=== PATIENT | male | born 1960 | race African-American/Black ===

== ENCOUNTER 2018-06-01 08:39 | Emergency (ER) | payer MEDICAID ==
[~2018-06-01] VITALS: Ht 180.3 cm; Wt 90.9 kg
[2018-06-01 08:45] VITALS: Ht 180.3 cm; Wt 90.9 kg
[2018-06-01] MEDS ORDERED: CYCLOBENZAPRINE10 MG PO (09:49)
[2018-06-01] MEDS ORDERED: IBUPROFEN800 MG PO (09:49)
[2018-06-01] MEDS ORDERED: ACETAMINOPHEN500 M1 PO (09:49)
[2018-06-01 10:02] VITALS: BP 160/87
== END 2018-06-01 10:03 | disposition home or self-care (01) ==
LOC: D.ER 08:39
DX: M25.571 Pain in right ankle and joints of right foot (principal); S93.401A Sprain of unspecified ligament of right ankle, initial encounter; W17.89XA Other fall from one level to another, initial encounter; Y93.89 Activity, other specified; Y92.89 Other specified places as the place of occurrence of the external cause

== ENCOUNTER 2018-07-12 11:27 | Emergency (ER) | payer MEDICAID ==
[~2018-07-12] VITALS: Ht 180.3 cm; Wt 90.9 kg
[~2018-07-12 11:27] MED LIST: ACETAMINOPHEN500 M1 PO; CYCLOBENZAPRINE10 MG PO; IBUPROFEN800 MG PO
[2018-07-12 12:00] VITALS: Ht 180.3 cm; Wt 90.9 kg
[2018-07-12 13:40] VITALS: BP 169/108
== END 2018-07-12 13:40 | disposition home or self-care (01) ==
LOC: D.ER 11:27
DX: M25.571 Pain in right ankle and joints of right foot (principal); M21.41 Flat foot [pes planus] (acquired), right foot

== ENCOUNTER 2018-08-14 06:27 | Emergency (ER) | payer MEDICAID ==
[2018-08-14 06:32] VITALS: BMI 27.9
[2018-08-14 07:32] VITALS: BP 136/78
== END 2018-08-14 07:33 | disposition home or self-care (01) ==
LOC: D.ER 06:27
DX: S93.401A Sprain of unspecified ligament of right ankle, initial encounter (principal); X58.XXXA Exposure to other specified factors, initial encounter; Y93.9 Activity, unspecified; Y92.9 Unspecified place or not applicable

== ENCOUNTER 2019-11-19 08:20 | Inpatient (IN) | payer SELFPAY ==
[2019-11-19] VITALS (38 sets, daily range): BP systolic 140–234; BP diastolic 90–210; Ht 180.3 cm; Wt 92.0 kg
[~2019-11-19] VITALS: Ht 180.3 cm; Wt 92.0 kg
--- NOTE | ~2019-11-19 | HEMODYNAMI ---
PATIENT:TONY HERNANDEZ MEDICAL RECORD: [id number] : 62 LOCATION:[facility]# [id number] ADMISSION DATE: 11/19/19 Generatedon:11/19/201913:03 Patient name: TONY HERNANDEZ Patient #: [id number] SSN: : 1960 Date of study: 11/19/2019 Page: Of Hemodynamic Procedure Report Patient Data Patient Demographics First Name: TONY Gender: Male Last Name: DAVID : 1960 Middle Initial: L Age: 59 year(s) Patient #: [id number] Race: Black Additional ID: [id number] Contact details [address]: [address] [place] [address] State: [place] City: [place] Zip code: [address] Past Medical History Allergies: No known allergies Admission Admission Data Admission Date: 11/19/2019 Admission Time: 10:29 Admit Source: Emergency department Room #: D.T02 Lab Results Lab Result Date: 11/19/2019 Lab Result Time: 0:00 Biochemistry Name Units Result Min Max BUN mg/dl 14 --(--*-)-- 7 18 Creatinine mg/dl 1.5 --(----)-* 0.6 1.3 eGFR ml/min 61.52537 *-(----)-- 90 120 NONAFRICAN CBC Name Units Result Min Max Hemoglobin g/dl 15.2 --(-*--)-- 13.5 17.5 Procedure Procedure Types Cath Procedure Diagnostic Procedure LHC LHC w/Coronaries Intra-Aortic Balloon Pump Sedation Charges Moderate Sedation up to 30 minutes PCI Procedure Coronary Stent Coronary Stent Initial Hemochron ACT Test Procedure Description Procedure Date Procedure Date: 11/19/2019 Procedure Start Time: 11:44 Procedure End Time: 12:39 Procedure Staff Name Function hSade Cabrera MD Performing Physician Lizzy Blue RT Monitor Ashley Schuler RT Audio Visual Collections Coordinator Carmelnia Merchant RT Scrub Estella Houston RN Nurse Procedure Data Cath Procedure Fluoroscopy Diagnostic fluoroscopy Total fluoroscopy Time: 5.4 time: 5.4 min min Diagnostic fluoroscopy Total fluoroscopy dose: 759 dose: 759 mGy mGy Contrast Material Contrast Material Type Amount (ml) Isovue 370 94 Entry Location Entry Primary Successful Side Size Upsize Upsize Entry Closure Succes sful Closure Location (Fr) 1 (Fr) 2 (Fr) Remarks Device Remarks Femoral Right 5 Fr 6 Fr 8 Fr Sheath artery Short sutured in place Estimated blood loss: 10 ml Diagnostic catheters Device Type Used For End Catheter Placement MULTIPACK JL 4.0 5Fr Procedure catheter MULTIPACK 3DRC 5Fr Procedure catheter MULTIPACK Pigtail 5 Fr Ventriculography catheter Procedure Complications No complications Procedure Medications Medication Administration Route Dosage 0.9% NaCl I.V. Oxygen 100 Lidocaine 2% added to field 20 Heparin Flush Bag added to field 2 bags (1000units/500ml NS) Diprivan 1% I.V. 60 mcg/kg/min (Propofol) Cardene I.V. 3 mg/hr Versed I.V. 2 mg Fentanyl I.V. 50 mcg Heparin Bolus I.V. 5000 units Integrilin (Bolus I.V. 8.6 ml 2mg/ml) Integrilin (Bolus I.V. 1.4 ml 2mg/ml) Fentanyl I.V. 50 mcg Versed I.V. 2 mg Integrilin Drip I.V. drip 7.5 ml/hr (75mg/100ml) Heparin Drip I.V. drip 1000 units/hr ([id number]/250 D5W) Dobutamine I.V. drip 5 mcg/kg/min (500mg/250ml D5W) Cardene I.V. 0 mg/hr Mechanical Ventricular Support IABP: Inserted after PCI has begun Hemodynamics Rest HGB: 15.2 (g/dl) Heart Rate: 92 (bpm) Pressure Samples Time Site Value (mmHg) Purpose Heart Use Rate(bpm) 11:49 LV 86/8,9 Snapshot 89 11:49 LV 84/9,10 Snapshot 89 Snapshots Pre Cath Intra NCS Post Cath Vital Signs Time Heart Resp SPO2 etCO2 NIBP (mmHg) Rhythm Pain Sedation Rate (ipm) (%) (mmHg) Status Level (bpm) 11:39:47 93 21 95 0 103/77(84) NSR 0 (11) 3(A) , No pain 11:41:05 92 24 96 0 95/70(80) NSR 0 (11) 3(A) , No pain 11:45:07 90 24 96 0 96/69(75) NSR 0 (11) 3(A) , No pain 11:49:06 88 30 97 0 103/76(81) NSR 0 (11) 3(A) , No pain 11:53:08 87 30 98 0 106/78(87) NSR 0 (11) 3(A) , No pain 11:57:14 88 32 100 0 109/74(88) NSR 0 (11) 3(A) , No pain 12:01:20 95 28 100 0 117/77(94) NSR 0 (11) 3(A) , No pain 12:06:09 100 17 99 0 156/105(118) ST 0 (11) 3(A) , No pain 12:10:20 108 30 99 0 137/90(107) ST 0 (11) 3(A) , No pain 12:14:26 104 23 98 0 127/86(99) ST 0 (11) 3(A) , No pain 12:18:38 93 28 98 0 115/82(92) NSR 0 (11) 3(A) , No pain 12:22:42 89 23 99 0 120/84(103) NSR 0 (11) 3(A) , No pain 12:27:37 95 20 99 0 96/70(89) NSR 0 (11) 3(A) , No pain 12:31:36 96 28 100 0 107/76(92) NSR 0 (11) 3(A) , No pain Medications Time Medication Route Dose Verified Delivered Reason N otes Effectiveness by by 11:40:04 Oxygen vent 100% FiO2 Shade Soria for low 02 sats i ntubated/sedated [facility] upon arrival to MD [facility] 11:40:04 0.9% NaCl I.V. kvo ml/hr Shade Soria used for [facility] procedure MD BARROS 11:40:33 Lidocaine 2% added 20ml vial Shade Laguerre for local to [facility] anesthetic field MD SAMAYOA 11:40:46 Heparin Flush added 2 bags Shade Laguerre used for Bag to [facility] procedure (1000units/500ml field MD MD NS) 11:40:50 Diprivan 1% I.V. 60 Shade Estella for sedation p t sedated upon (Propofol) mcg/kg/min [facility] arrival to JAINYA SAMAYOA RN 11:41:40 Cardene I.V. 3 mg/hr Shdae Estella for i nfusing upon [facility] hypertension arrival to JANIYA SAMAYOA RN 11:42:31 Versed I.V. 2 mg Shade Estella for sedation [facility] MD, RN 11:42:39 Fentanyl I.V. 50 mcg Shade Estella for sedation [facility] MD, RN 11:42:50 Cardene I.V. 0 mg/hr Shade Estella for [facility] hypertension MD BARROS 11:52:02 Heparin Bolus I.V. 5000 units Shade Estella for v erified with Dr. Mane anticoagulation [facility] Tre SAMAYOA RN 11:53:04 Versed I.V. 2 mg Shade Estella for sedation [facility] MD, RN 11:53:49 Fentanyl I.V. 50 mcg Shade Estella for sedation [facility] MD RN 11:59:18 Integrilin I.V. 8.6 ml Shade Estella for (Bolus 2mg/ml) [facility] antiplatelet RN therapy 11:59:31 Integrilin I.V. 1.4 ml Shade Estella for (Bolus 2mg/ml) [facility] antiplatelet RN therapy 12:19:17 Integrilin Drip I.V. 7.5 ml/hr Shade Estella for (75mg/100ml) drip [facility] antiplatelet RN therapy 12:19:26 Heparin Drip I.V. 1000 Shade Estella for (06727blqpn/250 drip units/hr [facility] anticoagulation D5W) RN 12:19:39 Dobutamine I.V. 5 Shade Estella Per physician (500mg/250ml drip mcg/kg/min [facility] D5Huam) nip wrapper Log Time Note 10:57:14 Informed consent obtained and on chart 10:57:45 Procedure Status Urgent Heart Cath (IP). 10:57:46 Time tracking: Regular hours (M-F 7:00 - 5:00) 10:57:52 Plan of Care:Hemodynamics will remain stable., Cardiac rhythm will remain stable., Comfort level will be maintained., Respiratory function will remain adequate., Patient/ family verbilizes understanding of procedure., Procedure tolerated without complication., Recovers from procedure without complications.. 10:58:38 Estella Conrad RN sent for patient. Start room use. 11:16:18 H&P Date Dictated: 11/19/2019 Emergent; H&P N/A. 11:16:27 Family unavailable. 11:16:35 Patient NPO since Midnight. 11:16:48 Patient allergic to No known allergies 11:16:57 Is the patient allergic to Iodine/contrast media? No. 11:16:58 Was the patient premedicated? Yes 11:17:12 Patient diabetic? No. 11:17:14 Is patient on blood thinner?No 11:17:20 Snore? Unknown 11:17:21 Sleep apnea? Unknown 11:17:25 Airway obstruction? Unknown ? 11:17:39 IV patent on arrival in left forearm with 0.9% NaCl at KVO. 11:18:42 Lab Result : BUN 14 mg/dl 11:18:42 Lab Result : eGFR NONAFRICAN 61.13453 ml/min 11:18:42 Lab Result : Creatinine 1.5 mg/dl 11:18:42 Lab Result : Hemoglobin 15.2 g/dl 11:18:47 Lab results completed and on chart. 11:18:52 Right groin area was prepped with chlora-prep and draped in sterile fashion 11:18:53 Alarms reviewed by R. N. 11:18:53 Sharps counted by scrub and verified by R.N. 11:39:16 Admit Source: Emergency department 11:39:26 Patient arrives emergently. 11:39:33 Patient received from ED to CCL 1 On ventilator. Tansferred to table in Supine position. 11:39:38 Warm blankets applied, and reggie hugger turned on for patient comfort. 11:40:04 Oxygen 100% FiO2 vent was administered by Estella Conrad RN; for low 02 sats; intubated/sedated upon arrival to Verbal order read back and verified. 11:40:04 0.9% NaCl kvo ml/hr I.V. was administered by Estella Conrad RN; used for procedure; Verbal order read back and verified. 11:40:07 Correct patient and procedure confirmed by team. 11:40:10 ECG and BP/O2 sat monitors applied to patient. 11:40:11 Vital chart was started 11:40:13 Baseline sample Acquired. 11:40:16 Full Disclosure recording started 11:40:33 Lidocaine 2% 20ml vial added to field was administered by Shade Cabrera MD; for local anesthetic; Verbal order read back and verified. 11:40:36 Physician arrived 11:40:36 --------ALL STOP TIME OUT------ 11:40:38 Final Timeout: patient, procedure, and site verified with staff and physician. All members of the team are in agreement. 11:40:46 Heparin Flush Bag (1000units/500ml NS) 2 bags added to field was administered by Shade Cabrera MD; used for procedure; Verbal order read back and verified. 11:40:50 Diprivan 1% (Propofol) 60 mcg/kg/min I.V. was administered by Estella Conrad RN; for sedation; pt sedated upon arrival to Verbal order read back and verified. 11:40:52 Right groin site verified by team. 11:40:56 Fire Safety Assessment: A--An alcohol-based skin anteseptic being used preoperatively., C--Open oxygen or nitrous oxide is being used., D--An ESU, laser, or fiber-optic light is being used. 11:41:02 Physical assessment completed. ASA score P 4 - A patient with severe systemic disease that is a constant threat to life as per Shade Cabrera MD. 11:41:10 3a) 45-59 Moderately reduced kidney function. 11:41:15 Maximum allowable contrast dose (3.7 X eGFR X 0.75)141 ml. 11:41:25 Sedation plan: IV Moderate Sedation Medication:Versed, Fentanyl, Propofol 11:41:30 Use device set Femoral Dx 11:41:34 ACIST Syringe (77421) opened to sterile field. 11:41:34 Bag Decanter () opened to sterile field. 11:41:35 Medline Cath Pack ([id number]) opened to sterile field. 11:41:36 ACIST Hand Control (17075) opened to sterile field. 11:41:37 ACIST Manifold (95137) opened to sterile field. 11:41:38 DIAGNOSTIC Multipack 5Fr catheter set (RH1294) opened to sterile field. 11:41:39 Tegaderm 4 x 4 (1626W) opened to sterile field. 11:41:40 Cardene 3 mg/hr I.V. was administered by Estella Conrad RN; for hypertension; infusing upon arrival to Verbal order read back and verified. 11:41:41 SHEATH 5FR Reed Point (SVD311) opened to sterile field. 11:41:41 EMERALD Guide Wire (948-712) opened to sterile field. 11:42:31 Versed 2 mg I.V. was administered by Estella Conrad RN; for sedation; Verbal order read back and verified. 11:42:39 Fentanyl 50 mcg I.V. was administered by Estella Conrad RN; for sedation; Verbal order read back and verified. 11:42:43 Zero performed for pressure channel P1 11:42:50 Cardene 0 mg/hr I.V. was administered by Estella Conrad RN; for hypertension; Verbal order read back and verified. 11:42:50 Zero performed for pressure channel P1 11:43:05 Zero performed for pressure channel P1 11:43:29 Procedure started. 11:44:13 Local anesthetic to right femoral artery with Lidocaine 2% by Shade Cabrera MD.INITIAL ACCESS ONLY 11:44:22 A 5 Fr sheath was inserted into the Right Femoral artery 11:44:25 Pt arrived to 1 from ER intubated/sedated. Pt bucking and fighting vent upon arrival and 2mg Versed, 50 mcg Fentanyl given. Pt now calm and asleep. VSS. Pt noted to have pink frothy sputum inside ETT. RADHA EtCO2 d/t ventilator. Azitrhomycin infusing upon arrival but stopped shortly after arrival d/t finshed infusion. 11:45:07 A MULTIPACK JL 4.0 5Fr catheter was advanced over the wire and used for Procedure. 11:46:18 LCA angiography performed. 11:46:40 Catheter removed. 11:46:48 A MULTIPACK 3DRC 5Fr catheter was advanced over the wire and used for Procedure. 11:47:54 RCA angiography performed. 11:49:00 Catheter removed. 11:49:09 A MULTIPACK Pigtail 5 Fr catheter was advanced over the wire and used for Ventriculography. 11:49:13 LV angiography performed. 11:50:00 EF : 20 % 11:52:02 Heparin Bolus 5000 units I.V. was administered by Estella Conrad RN; for anticoagulation; verified with Dr. Alejo Verbal order read back and verified. 11:52:16 Catheter removed. 11:52:27 Sheath upsized to a 6 Fr Short. 11:52:36 SHEATH 6FR Reed Point (DOO467) opened to sterile field. 11:52:51 6 Fr xblad 3.5 guide catheter was inserted over the wire 11:53:04 Versed 2 mg I.V. was administered by Estella Conrad RN; for sedation; Verbal order read back and verified. 11:53:49 Fentanyl 50 mcg I.V. was administered by Estella Conrad RN; for sedation; Verbal order read back and verified. 11:53:50 WHISPER 300cm guide wire ([id number]) opened to sterile field. 11:53:51 INFLATOR Merit BasixCompak (RR0726) opened to sterile field. 11:53:52 GUIDE 6FR XBLAD 3.5 catheter ([id number]) opened to sterile field. 11:54:01 whisper wire advanced. 11:54:27 Wire advanced across lesion. 11:56:42 Inflate balloon Inflation number: 1 A EUPHORA 3.0 x 20 Balloon ([id number]) was prepped and advanced across the Mid LAD 80, then inflated to 12 HANS for 0:15 (min:sec) . 11:57:25 multiple inflations 11:59:18 Integrilin (Bolus 2mg/ml) 8.6 ml I.V. was administered by Estella Conrad RN; for antiplatelet therapy; Verbal order read back and verified. 11:59:31 Integrilin (Bolus 2mg/ml) 1.4 ml I.V. was administered by Estella Conrad RN; for antiplatelet therapy; Verbal order read back and verified. 11:59:48 Balloon removed over the wire. 12:02:25 Place stent Inflation Number: 1 A INTEGRITY RX 3.5 x 26 stent ([id number]) was prepped and advanced across the Undefined1 80. The stent was deployed at 14 HANS for 0:20 (min:sec) 0. 12:03:57 Wire removed. 12:07:01 Guide catheter removed. 12:07:05 IABP 40cm balloon catheter ([id number]) opened to sterile field. 12:07:37 Triple lumen was inserted through rt femoral vein 12:08:00 Sheath 8fr. Reed Point 10cm opened to sterile field. 12:08:18 Sheath upsized to a 8 Fr. 12:08:32 40cc IABP inserted into the RFA . 12:14:03 triple lumen catheter in right femoral vein 12:14:49 Augmentation: 1:1 per physician. 12:14:54 Trigger: ECG 12:15:41 TUBING High Pressure Extension (IABP) opened to sterile field. 12:19:17 Integrilin Drip (75mg/100ml) 7.5 ml/hr I.V. drip was administered by Estella Conrad RN; for antiplatelet therapy; Verbal order read back and verified. 12:19:26 Heparin Drip (10433zoaos/250 D5W) 1000 units/hr I.V. drip was administered by Estella Conrad RN; for anticoagulation; Verbal order read back and verified. 12:19:39 Dobutamine (500mg/250ml D5W) 5 mcg/kg/min I.V. drip was administered by Estella Conrad RN; Per physician; Verbal order read back and verified. 12:28:30 Add IABP Inserted after PCI has begun 12:28:48 Procedure ended.(Physican Out) 12:29:34 Fluoroscopy time 05.40 minutes. 12:29:44 Flurop Dose total: 759 12:29:44 Fluoroscopy dose: 759 mGy 12:29:50 Dose Area Product 95679 mGy/cm. 12:29:58 Contrast amount:Isovue 370 94ml. 12:30:11 Maximum allowable dose exceeded? No. 12:30:13 Sharps counted by scrub and verified by R.N. 12:30:15 Insertion/operative site no bleeding no hematoma. 12:30:19 Post-op/insertion site Right Femoral artery dressed using a 4 x 4 and Tegaderm. 12:30:22 Post Procedure Pulses reassessed and unchanged 12:30:32 Post-procedure physical assessment completed. ASA score P 4 - A patient with severe systemic disease that is a constant threat to life as per Shade Cabrera MD. 12:30:39 Post procedure rhythm: unchanged. 12:30:48 Estimated blood loss: 10 ml 12:30:50 Post procedure instruction explained to patient.Patient verbalizes understanding. 12:31:42 Procedure type changed to Cath procedure, Diagnostic procedure, LHC, [facility] w/Coronaries, Intra-Aortic Balloon Pump, Sedation Charges, Moderate Sedation up to 30 minutes, PCI procedure, Coronary Stent, Coronary Stent Initial, Hemochron ACT Test 12:31:44 Procedure and supply charges have been captured, reviewed, submitted and are correct. 12:32:33 Procedure Complication : No complications 12:32:35 Vital chart was stopped 12:32:36 ACT drawn and resulted at 303 seconds. (normal therapeutic range 180-240 seconds). 12:32:48 [facility] Findings: MVD- PCI performed (see procedure note) 12:32:52 See physician's report for complete and final results. 12:32:59 Report given to ICU. 12:35:02 Sheath removed intact; hemostasis achieved with Sheath sutured in place to the Right Femoral artery. 12:39:38 Procedure ended. 12:39:38 Full Disclosure recording stopped 12:54:02 End room use (Document Last) Intervention Summary Intervention Notes Time ActionType Lesion and Equipment Action# Pressure Duration Attributes Used 11:56:42 Inflate Mid LAD EUPHORA 3.0 1 12 00:15 balloon x 20 Balloon ([id number]) 12:02:25 Place stent Undefined1 INTEGRITY RX 1 14 00:20 3.5 x 26 stent ([id number]) Device Usage Item Name Manufacture Quantity Catalog Number [facility] Minimal Lot# / Charge Number Stock Stock Serial# Code ACIST Syringe Acist 1 42465 771625 496553 590127 20 (33369) [employer] Bag Decanter Microtek 1 479282 91584 899736 5 () Medical Inc. Medline Cath Medline 1 [id number] 660009 51382 468795 5 Pack ([id number]) ACIST Hand Acist 1 55734 408028 144726 635626 5 Control (07357) [employer] Inc ACIST Manifold Acist 1 43750 036743 870925 997271 5 (40845) [employer] Systems Inc DIAGNOSTIC Cardinal 1 [id number] 161632 36124 795513 30 Multipack 5Fr Health catheter set ([id number]) Tegaderm 4 x 4 3M 1 1626W 063507 355084 703210 5 (1626W) SHEATH 5FR Terumo 1 FQS724 906195 330303 886380 5 Reed Point (WKQ075) EMERALD Guide Cardinal 1 502-455 028992 116916 585869 5 Wire (502-455) Health MULTIPACK JL Cardinal 1 018804 5 4.0 5Fr Health catheter MULTIPACK 3DRC Cardinal 1 205348 5 5Fr catheter [facility] MULTIPACK Cardinal 1 148127 5 Pigtail 5 Fr Health catheter SHEATH 6FR Terumo 1 [id number] 336724 347115 712329 40 Reed Point (UAF921) WHISPER 300cm Isaacs 1 [id number] 945042 941448 649029 5 guide wire Vascular ([id number]) INFLATOR Merit Merit 1 BG0682 000130 566532 394851 15 ProFounderLogan Regional HospitalSinosun Technology [facility] (FT0468) GUIDE 6FR XBLAD Cardinal 1 [id number] 277762 761274 721015 10 3.5 catheter [employer] ([id number]) EUPHORA 3.0 x Medtronic 1 [id number] 855942 515827 802279 5 [id number] 20 Balloon ([id number]) INTEGRITY RX Medtronic 1 [id number] 550388 433788 920647 5 [id number] 3.5 x 26 stent ([id number]) IABP 40cm [facility] 1 [id number] 842185 110933 919020 1 SADAR 3D [facility] catheter (242206) ([id number]) Sheath 8fr. Terumo 1 [id number] 187980 377432 7 5 Reed Point 10cm TUBING High Merit 1 [id number] 876190 169089 011415 5 Pressure Medical Extension (IABP) Signature Audit [place] Stage Time Signature Unsigned Intra-Procedure 11/19/2019 Estella Conrad 1:03:16 PM RN Intra-Procedure 11/19/2019 Shade Guadalupe 1:03:[address] [facility] [address] [place] [address]
--- NOTE | 2019-11-19 08:41 | NUR ---
RT AT BEDSIDE
[2019-11-19 08:44] LABS: BASOPHILS 1.2 % (0-2); EOSINOPHILS 0.7 % (0-7); HEMOGLOBIN 15.2 g/dL (13.5-17.5); IMMATURE GRANULOCYTES 0.2 % (0-5); LYMPHOCYTES 37.7 % (15-50); MCH 31.8 pg (26.0-34.0); MCV 96.2 fL (80.0-100.0); MONOCYTES 8.6 % (2-11); NEUTROPHILS 51.6 % (40-80); PLATELET COUNT 251 10x3/uL (130-400); RBC 4.78 10x6/uL (4.20-6.10); RDW 14.1 % (11.5-14.5); WBC 6.1 10x3/uL (4.8-10.8)
[2019-11-19 08:53] LABS: INR 1.02 (0.85-1.17); PROTIME 13.3 SECONDS (11.6-15.0)
--- NOTE | 2019-11-19 09:00 | NUR ---
PT MOVED TO T2 TO PREP FOR INTUBATION. EDP AT BEDSIDE.
--- NOTE | 2019-11-19 09:08 | NUR ---
PT INTUBATED BY EDP, 7.5 ETT.
--- NOTE | 2019-11-19 09:11 | NUR ---
PROPOFOL INITIATED AT THIS TIME AT 5MCG
--- NOTE | 2019-11-19 09:15 | NUR ---
VERBAL ORDER GIVEN BY ALEXANDRIA RODGERS TO DC NS BOLUS AND RUN NS KVO. INFUSION RATE DECREASED TO 30ML/HR
[2019-11-19 09:26] LABS: CALC OSMOLALITY 285 mosm/kg (275-300); CALCIUM 8.9 mg/dL (8.5-10.1); CARBON DIOXIDE 22.9 mmol/L (21.0-32.0); CHLORIDE - SERUM 101 mmol/L (98-107); CREATININE - SERUM 1.5 mg/dL (0.6-1.3); GLUCOSE 203 mg/dL (74-106); POTASSIUM - SERUM 3.2 mmol/L (3.5-5.1); SODIUM 140 mmol/L (136-145); UREA NITROGEN 14 mg/dL (7-18); eGFR NON AFRICAN AMERICAN 51 mL/min (90-120)
[2019-11-19 09:43] LABS: ALBUMIN 3.6 g/dL (3.4-5.0); ALKALINE PHOSPHATASE 63 U/L (30-120); ALT (SGPT) 24 U/L (10-68); BILIRUBIN - TOTAL 0.55 mg/dL (0.2-1.3); CKMB 4.2 U/L (0.0-3.6); CREATINE KINASE 241 UL (21-232); PRO BNP 2903 pg/mL (0-125); PROTEIN - SERUM 8.6 g/dL (6.4-8.2)
[2019-11-19 09:44] LABS: TROPONIN-I 3.457 ng/mL (0.000-0.060)
--- NOTE | 2019-11-19 09:45 | NUR ---
PROPOFOL CONTINUES TO INFUSE. RATE INCREASED ACCORDING TO PROTOCOL. PT CONTINUES TO FIGHT INTUBATION.
--- NOTE | 2019-11-19 10:15 | NUR ---
PT CONTINUING TO FIGHT INTUBATION, PROPOFOL INFUSING. RATE INCREASED ACCORDING TO PROTOCOL.
[2019-11-19 10:23] LABS: CHOL - HDL RATIO 3.6 ratio (2.3-4.9); LDL-HDL RATIO 2.1 ratio (1.5-3.5)
--- NOTE | 2019-11-19 10:30 | NUR ---
PT APPEARS AGITATED. PROPOFOL INCREASED ACCORDING TO PROTOCOL.
--- NOTE | 2019-11-19 11:12 | NUR ---
SPINDLE SANDER TEAM AT BEDSIDE
--- NOTE | 2019-11-19 11:25 | NUR ---
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
[2019-11-19 15:22] LABS: CKMB 4.4 U/L (0.0-3.6); CREATINE KINASE 238 UL (21-232)
[2019-11-19 16:50] LABS: UDS - AMPHET NEGATIVE QUAL (NEGATIVE); UDS - BARB NEGATIVE QUAL (NEGATIVE); UDS - BENZO POSITIVE QUAL (NEGATIVE); UDS - COCAINE NEGATIVE QUAL (NEGATIVE); UDS - OPIATE NEGATIVE QUAL (NEGATIVE); UDS - PCP NEGATIVE QUAL (NEGATIVE); UDS - THC NEGATIVE QUAL (NEGATIVE)
--- NOTE | 2019-11-19 19:25 | NUR ---
DR RIZZO RETURNED PAGE REGARDING ELEVATED BP, ORDERS RECEIVED.
--- NOTE | 2019-11-19 19:35 | NUR ---
DR BRIGGS RETURNED PAGE REGARDING ELEVATED BP AND DOBUTAMINE GTT, ORDERS RECEIVED.
[2019-11-20] VITALS (24 sets, daily range): BP systolic 133–162; BP diastolic 83–104
[2019-11-20 05:47] LABS: BASOPHILS 0.1 % (0-2); EOSINOPHILS 0 % (0-7); HEMOGLOBIN 12.2 g/dL (13.5-17.5); IMMATURE GRANULOCYTES 0.1 % (0-5); LYMPHOCYTES 8.9 % (15-50); MCH 30.9 pg (26.0-34.0); MCHC 33.3 g/dL (31.0-37.0); MEAN PLATELET VOLUME 10.2 fL (7.4-10.4); NEUTROPHILS 83.9 % (40-80); PLATELET COUNT 227 10x3/uL (130-400); RBC 3.95 10x6/uL (4.20-6.10); RDW 13.8 % (11.5-14.5)
[2019-11-20 05:56] LABS: HEMATOCRIT 36.6 % (42.0-54.0); MCV 92.7 fL (80.0-100.0)
--- NOTE | 2019-11-20 06:21 | NUR ---
AM LABS REVIEWED, HEPARIN GTT INCREASED TO 1100 UNITS/HR PER PROTOCOL. RECHECK PTT IN 6 HOURS-ORDER IN.
[2019-11-20 06:22] LABS: ALBUMIN 2.7 g/dL (3.4-5.0); ALKALINE PHOSPHATASE 42 U/L (30-120); ALT (SGPT) 14 U/L (10-68); BILIRUBIN - TOTAL 0.61 mg/dL (0.2-1.3); CALC OSMOLALITY 281 mosm/kg (275-300); CALCIUM 8.3 mg/dL (8.5-10.1); CARBON DIOXIDE 31.1 mmol/L (21.0-32.0); CHLORIDE - SERUM 102 mmol/L (98-107); CKMB 6.4 U/L (0.0-3.6); CREATINE KINASE 180 UL (21-232); CREATININE - SERUM 1.2 mg/dL (0.6-1.3); GLUCOSE 123 mg/dL (74-106); POTASSIUM - SERUM 3.1 mmol/L (3.5-5.1); PROTEIN - SERUM 6.8 g/dL (6.4-8.2); SODIUM 141 mmol/L (136-145); UREA NITROGEN 12 mg/dL (7-18); eGFR NON AFRICAN AMERICAN 66 mL/min (90-120)
--- NOTE | 2019-11-20 19:30 | NUR ---
RESUMED CARE OF PT, ASSESSMENT PER FLOWSHEET. IABP TO RT GROIN, SECURED, PT INTUBATED AND SEDATED ON VENT, LINES FLUSHED AND ZEROED, VSS.
--- NOTE | 2019-11-20 23:30 | NUR ---
REASSESSMENT PER FLOWSHEET, NO ACUTE CHANGES NOTED AT THIS TIME. ORAL CARE AND SUCTIONING COMPLETED, POSITIONED FOR COMFORT SUPPORTED WITH WEDGES.
[2019-11-21] VITALS (24 sets, daily range): BP systolic 114–155; BP diastolic 76–101
--- NOTE | 2019-11-21 01:50 | NUR ---
PT RESTING SEDATED ON VENT, VSS, CONT TO MONITOR.
--- NOTE | 2019-11-21 03:30 | NUR ---
REASSESSMENT PER FLOWSHEET, NO ACUTE CHANGES NOTED AT THIS TIME. ORAL CARE AND SUCTIONING PROVIDED, VSS, POSITIONED FOR COMFORT.
[2019-11-21 05:46] LABS: HEMATOCRIT 38.8 % (42.0-54.0); HEMOGLOBIN 12.9 g/dL (13.5-17.5); MCH 31.2 pg (26.0-34.0); MCHC 33.2 g/dL (31.0-37.0); MCV 93.9 fL (80.0-100.0); MEAN PLATELET VOLUME 10.3 fL (7.4-10.4); RBC 4.13 10x6/uL (4.20-6.10); RDW 14.3 % (11.5-14.5); WBC 5.8 10x3/uL (4.8-10.8)
--- NOTE | 2019-11-21 06:00 | NUR ---
HEPARIN GTT TURNED OFF PER ORDER.
[2019-11-21 06:12] LABS: ALBUMIN 2.6 g/dL (3.4-5.0); ANION GAP 11.2 mmol/L (8-16); BILIRUBIN - TOTAL 0.42 mg/dL (0.2-1.3); CALCIUM 8.5 mg/dL (8.5-10.1); CARBON DIOXIDE 29.6 mmol/L (21.0-32.0); CREATININE - SERUM 1.4 mg/dL (0.6-1.3); PROTEIN - SERUM 6.8 g/dL (6.4-8.2)
[2019-11-21 06:21] LABS: POTASSIUM - SERUM 2.8 mmol/L (3.5-5.1)
--- NOTE | 2019-11-21 07:00 | NUR ---
REPORT RECEIVED. ASSESSMENT COMPLETE PER FLOW SHEET. REFER FOR FINDINGS. TP RSTING COMFORTABLY WILL CONTINUE TO MONITOR
--- NOTE | 2019-11-21 09:10 | NUR ---
DR BRIGGS AT BEDSIDE. GIVEN UPDATE. R GROIN CVL AND IABP REMOVED BALLOON INTACT. FEM STOP APPLIED. WILL CONTINUE TO MONITOR
--- NOTE | 2019-11-21 11:15 | NUR ---
REASSESSMENT COMPELTE PER FLOW SHEET. VSS. PT RESTING COMFORTABLY HIRAM CONTINUE TO MONITOR
--- NOTE | 2019-11-21 12:53 | NUR ---
Nutrition follow-up: Pt remains intubated, sedated with propofol @ 39.9 ml/hr Labs reviewed Wt: 189# EF: 15% Recommend starting Pulmocare @ 25 ml/hr with increase to goal rate of 50 ml/hr when medically feasible. RDN following.
--- NOTE | 2019-11-21 13:15 | NUR ---
ORAL ENDOTRACH CARE ADM. NO NEW CHANGES WILL CONTINUE TO MONTIOR
--- NOTE | 2019-11-21 13:47 | OP ---
PATIENT NAME: TONY HERNANDEZ MEDICAL RECORD: [id number] :62 LOCATION:[facility] D.2310 ADMISSION DATE:11/19/19 SURGEON: GABRIELLA BRIGGS MD DATE OF OPERATION: 11/19/2019 PROCEDURE: Left heart catheterization, selective coronary angiography plus intraaortic balloon pump plus PTCA in the LAD plus triple lumen placement. The patient was brought to the laborer aquatic life. APPROACH: Right femoral artery and right femoral vein approach. CATHETERS: A 5-English sheath, 5/4 Ahmet, 5/4 pig. We proceeded to do PTCA stenting of the LAD and balloon pump placement. Initially, central venous line placement due to multiple drips, inadequate IV access. FINDINGS: Left ventriculography in 30-degree MUELLER view shows severe global hypokinesis, EF 15% to 20%, LVEDP is elevated at 25 to 30 mmHg. CORONARY ANATOMY: LEFT MAIN: Left main is free of disease. LAD: LAD basically subtotaled in its proximal portion with CECILIA flow 1 to 2 distally. This is a severely diffusely diseased vessel. CIRCUMFLEX: Circumflex totally occluded and fills via collaterals from right. Right has discrete 80% stenosis. IMPRESSION: Cardiogenic shock during closure of the LAD. PLAN: Intervention momentarily. DESCRIPTION OF PROCEDURE: A 5-English sheath was exchanged for a 6-English sheath. XB LAD guiding catheter provided excellent guide catheter support. Pre-deployment balloon was a 3.0 x 20 mm Broadwater balloon up and down the LAD. This showed multiple areas of dissection as well, but with improvement in CECILIA flow from 1 to 2. Next, a 3.5 x 30 mm Integrity nondrug-eluting stent was placed to cover the entire area, inflated up to 14 atmospheres for 45 seconds. This showed excellent resolution of multiple sections and original stenosis of better than 90%. Alevism of CECILIA flow to 3. Next, under fluoroscopic guidance, a 6-English sheath was exchanged for an 8-English sheath and the intraaortic balloon pump was placed at the level of the lanette and placement begun at 1:1. The patient was started on Dobutrex. Additionally, due to poor access the right femoral vein was cannulated via modified Seldinger technique. A wire was placed and area was predilated, finally a triple lumen was placed with good flush through all 3 ports. IMPRESSION: Successful PTCA stenting, intraaortic balloon pump, central venous line placement. The patient is transferred to the ICU in critical condition with significantly still high risk for mortality. TRANSINT:[id number] Voice Confirmation ID: [id number] DOCUMENT ID: [id number] OPERATIVE REPORT [id number] TONY HERNANDEZ GREGORY A MD at 1347 CC: [id number] DICTATION DATE: 11/19/19 1243 DULSER: 11/19/19 1424 ADM IN [facility] [address] [place] [address]
--- NOTE | 2019-11-21 13:47 | CN ---
PATIENT NAME:TONY HERNANDEZ MEDICAL RECORD: [id number] : 62 LOCATION:[facility] ADMIT DATE: 11/19/19 ACCOUNT: [id number] CONSULTING PHYSICIAN: GABRIELLA BRIGGS MD REFERRING PHYSICIAN: AURA RIZZO MD DATE OF CONSULTATION: 11/19/2019 HISTORY OF PRESENT ILLNESS: A 59-year-old gentleman with no known history of coronary artery disease. History is obtained from the ER, was admitted with respiratory distress, marked hypertension, found to have non-ST elevation myocardial infarction. He subsequently required intubation. Apparently, his symptoms began 2-3 days ago. He is on no chronic medications, historically. He is brought into laborer chemical processing on an urgent basis with probably cardiogenic shock. PAST MEDICAL HISTORY: Unobtainable. REVIEW OF SYSTEMS: Unobtainable. PHYSICAL EXAMINATION: GENERAL: Sedated and intubated. VITAL SIGNS: Blood pressure initially 215/115. HEENT: Normocephalic, atraumatic. NECK: No JVD or bruit. HEART: Regular. LUNGS: Good air excursion. ABDOMEN: Soft, nontender. EXTREMITIES: Pulses 2+. No edema. DIAGNOSTIC DATA: EKG shows nonspecific ST-T changes. IMPRESSION: Cardiogenic shock, non-ST elevation myocardial infarction, hypertensive crisis. He was brought into the laborer chemical processing on an urgent basis. TRANSINT:[id number] Voice Confirmation ID: [id number] DOCUMENT ID: [id number] GABRIELLA BRIGGS MD at 1347 CC: [id number] DICTATION DATE: 11/19/19 1138 NAPHTHALENE OPERATOR: 11/19/19 1200 ADM IN [facility] [id number] [place] [address]
--- NOTE | 2019-11-21 15:15 | NUR ---
REASSESSMETN COMPLETE PER FLOW SHEET. VSS. PT RESTING COMFORTABLY WILL CONTINUE TO MONITOR
--- NOTE | 2019-11-21 17:15 | NUR ---
REPOSITIONED FOR COMFORT. PARTIAL BB LINEN CHANGE ADM. WILL CONTINUE TO MONITOR
--- NOTE | 2019-11-21 19:15 | NUR ---
REPORT RECIEVED, SHIFT ASSESSMENT COMPLETE, PT IS SEDATED ON VENT, ON 30% FIO2 WITH 99% O2 SAT, ALL PPP, VSS, WILL CON'T TO MONITOR
--- NOTE | 2019-11-21 21:00 | NUR ---
NO NEEDS NOTED AT THIS TIME, WILL CON'T TO MONITOR
--- NOTE | 2019-11-21 23:15 | NUR ---
REASSESSMENT COMPLETE, NO CHANGES NOTED, PT REPOSITIONED FOR COMFORT, ORAL CARE PROVIDED,
[2019-11-22] VITALS (10 sets, daily range): BP systolic 102–174; BP diastolic 72–111
--- NOTE | 2019-11-22 01:00 | NUR ---
REPOSITIONED FOR COMFORT, ORAL CARE PROVIDED
--- NOTE | 2019-11-22 03:29 | NUR ---
REASSESSMENT COMPLETE, NO CHANGES NOTED, WILL CON'T TO MONITOR
[2019-11-22 05:25] LABS: BASOPHILS 0.3 % (0-2); EOSINOPHILS 0 % (0-7); HEMATOCRIT 38.2 % (42.0-54.0); HEMOGLOBIN 12.4 g/dL (13.5-17.5); IMMATURE GRANULOCYTES 0.2 % (0-5); LYMPHOCYTES 10.5 % (15-50); MCH 30.7 pg (26.0-34.0); MCHC 32.5 g/dL (31.0-37.0); MCV 94.6 fL (80.0-100.0); MEAN PLATELET VOLUME 10.3 fL (7.4-10.4); MONOCYTES 6.7 % (2-11); NEUTROPHILS 82.3 % (40-80); PLATELET COUNT 222 10x3/uL (130-400); RBC 4.04 10x6/uL (4.20-6.10); RDW 14.2 % (11.5-14.5)
[2019-11-22 05:47] LABS: ALBUMIN 2.5 g/dL (3.4-5.0); ANION GAP 12.5 mmol/L (8-16); BILIRUBIN - TOTAL 0.43 mg/dL (0.2-1.3); CALCIUM 8.5 mg/dL (8.5-10.1); CARBON DIOXIDE 27.1 mmol/L (21.0-32.0); CREATININE - SERUM 1.2 mg/dL (0.6-1.3); MAGNESIUM - SERUM 1.5 mg/dL (1.8-2.4); PROTEIN - SERUM 6.9 g/dL (6.4-8.2)
[2019-11-22 06:03] LABS: POTASSIUM - SERUM 2.6 mmol/L (3.5-5.1)
--- NOTE | 2019-11-22 09:37 | NUR ---
PT HR NOTED TO BE 45 VENTRICULAR RHYTHM NO PULSE FOUND CODE CALLED SEE CODE BLUE SHEET.
--- NOTE | 2019-11-22 10:15 | NUR ---
POLICE CALLED ATTEMPT TO FIND FAMILY. NO FAMILY LISTED
--- NOTE | 2019-11-22 10:41 | NUR ---
1025 PT IN VENTRICULAR RHYTHM RATE OF 43 NO HR NOTED. CODE CALLED, CPR INITIATED SEE CODE BLUE SHEET
--- NOTE | 2019-11-22 11:26 | NUR ---
PT HR NOTED TO BE 30 NO PULSE FOUND CODE BLUE CALLED CPR INITIATED SEE CODE BLUE SHEET. 1132 DR GAXIOLA AT BEDSIDE PULSE CHECK NO PULSE FOUND CODE CALLED AT THIS TIME. TOD 1134
--- NOTE | 2019-11-22 11:42 | NUR ---
spoke with farhad at dr RIZZO OFFICE. NOTIFIED HER OF PT .
--- NOTE | 2019-11-22 11:48 | NUR ---
INSURANCE APPRAISER CALLED [facility]OU[facility]. STATED WOULD CALL BACK ONCE FOUND FAMILY
--- NOTE | 2019-11-22 13:00 | NUR ---
OPERATIONS RESEARCH GROUP MANAGER CALLED BACK STATED WAS SENDING SOMEONE TO HUMAN RESOURCES DIRECTOR THE BODY
--- NOTE | 2019-11-22 13:31 | NUR ---
YING CALLED GIVEN UDPATE REGAURDING RAIZA AND [facility] [employer] FORMER. STATED OKAY
--- NOTE | 2019-11-22 14:20 | NUR ---
BLOGS MANAGER HERE TO RECREATION TEACHER BODY. NO NEW CHANGES. LEFT VIA DANY
--- NOTE | 2019-11-22 21:32 | MORECARE ---
CASE MANAGEMENT DISCHARGE SUMMARY PATIENT: TONY HERNANDEZ UNIT: [id number] ADM DATE: 11/19/19 AGE: 59 : 62 SEX: M ROOM/BED: D.2310 AUTHOR: TIAN BLANCA PHYSICIAN: REFERRING PHYSICIAN: AURA RIZZO MD DATE OF SERVICE: 11/22/19 Discharge Plan Patient Name: TONY [facility]NDEZ [facility] [facility] 1960 Planned Disposition: Anticipated Discharge Date: Discharge Date: 11/22/2019 Expected LOS: Initial Reviewer: [id number] Initial Review Date: 11/19/2019 Generated: 11/22/19 10:31 pm Patient Name: TONY HERNANDEZ Page [id number] at 2132 All edits/amendments must be made on the electronic document DICTATION DATE: 11/22/192130 GRAPHICS ARTIST: EMETERIO 11/22/192130 RPT#: [id number] DC DATE:11/22/19 STATUS: DIS IN [facility] [address] [place] [address] END OF REPORT
== END 2019-11-22 14:21 | DRG 270 ==
LOC: D.ER 08:20 → D.EDHOLD 10:29 → D.ICU 10:29
PROVIDERS: Family Medicine; Internal Medicine Interventional Cardiology; Internal Medicine Pulmonary Disease; ADMIT Family Medicine; ATTEND Family Medicine
PROC: 0BH17EZ Insertion of Endotracheal Airway into Trachea, Via Natural or Artificial Opening (ICD-10-PCS; 2019-11-19)
PROC: 02703DZ Dilation of Coronary Artery, One Artery with Intraluminal Device, Percutaneous Approach (ICD-10-PCS; principal; 2019-11-19 11:00)
PROC: 5A02210 Assistance with Cardiac Output using Balloon Pump, Continuous (ICD-10-PCS; 2019-11-19 11:00)
PROC: 5A1945Z Respiratory Ventilation, 24-96 Consecutive Hours (ICD-10-PCS; 2019-11-19 11:00)
DX: I21.4 Non-ST elevation (NSTEMI) myocardial infarction (principal); J96.01 Acute respiratory failure with hypoxia; I16.9 Hypertensive crisis, unspecified; E87.2 Acidosis; R57.0 Cardiogenic shock; I25.10 Atherosclerotic heart disease of native coronary artery without angina pectoris; E78.5 Hyperlipidemia, unspecified